=== PATIENT | female | born 1965 | race Caucasian/White ===

== ENCOUNTER 2016-11-25 16:29 | Emergency (ER) | payer BC ==
[~2016-11-25 16:29] MED LIST: BLACK COHASH PO; CELEXA20 PO; CO Q-10100 MG PO; COZ25 PO; FLEX PO; FORTAMET500 MG PO; HEMOCYTET PO; IMITSPRY20 NAS; LIPITOR20 PO; MAG-DELAY PO; MAGOX4 PO; NORCO1 TAB PO; PREV30 PO; PROAIR HFA INH; PROBIOTIC PO; SYN112 PO; VIACTIV PO; VICTOZA18 MG/3 ML SC; VITAMIN B-121000 MC1 SL; XYZAL5 MG PO
== END 2016-11-25 21:01 | disposition home or self-care (01) ==
LOC: ER 16:29
DX: G43.909 Migraine, unspecified, not intractable, without status migrainosus (principal); I10 Essential (primary) hypertension; K21.9 Gastro-esophageal reflux disease without esophagitis; F32.9 Major depressive disorder, single episode, unspecified; F41.9 Anxiety disorder, unspecified; E11.9 Type 2 diabetes mellitus without complications; E03.9 Hypothyroidism, unspecified; Z88.2 Allergy status to sulfonamides; Z88.8 Allergy status to other drugs, medicaments and biological substances; Z79.899 Other long term (current) drug therapy
CPT/HCPCS: 96374; 96375; 99284; J1200; J1885; J2765